=== PATIENT | male | born 1995 | race Caucasian/White ===

== ENCOUNTER 2017-12-20 09:14 | Inpatient (IN) | payer OTHER ==
[2017-12-20 10:06] LABS: ADD MAN DIFF? NO
[2017-12-20] MEDS: SOD CHLORIDE 0.9% 1,000 ML IV ×2 (10:07→10:53)
[2017-12-20] MEDS: KETOROLAC 30 MG INJ IV (10:07)
[2017-12-20 10:09] LABS: WHITE BLOOD COUNT 9.2 10^3/ul (4.8-10.8)
[2017-12-20 10:09] LABS: BASOPHILS % 0.1 % (0.0-2.0); HEMATOCRIT 41.3 % (42.0-52.0); HEMOGLOBIN 14.3 g/dl (14.0-18.0); LYMPHOCYTES # 0.9 10^3/ul (0.8-2.9); LYMPHOCYTES % 10.2 % (15.0-51.0); MEAN CORPUSCULAR HEMOGLOBIN 29.7 pg (29.0-33.0); MEAN CORPUSCULAR HGB CONC 34.6 g/dl (32.0-37.0); MEAN CORPUSCULAR VOLUME 85.7 fl (82.0-101.0); MONOCYTE # 0.7 10^3/ul (0.3-0.9); NEUTROPHIL # 7.5 10^3/ul (1.6-7.5); NEUTROPHILS % 81.5 % (39.0-77.0); PLATELET COUNT 222 10^3/UL (140-415); RED BLOOD COUNT 4.82 10^6/ul (4.70-6.10); RED CELL DISTRIBUTION WIDTH 11.9 % (11.5-14.5)
[2017-12-20 10:26] LABS: ALANINE AMINOTRANSFERASE 21 IU/L (13-69); ALBUMIN 4.9 g/dl (3.3-4.9); ALBUMIN/GLOBULIN RATIO 1.48; ALKALINE PHOSPHATASE 50 IU/L (42-121); ANION GAP 17 (8-16); ASPARTATE AMINO TRANSFERASE 29 IU/L (15-46); BLOOD UREA NITROGEN 13 mg/dl (7-20); CALCIUM 9.8 mg/dl (8.4-10.2); CARBON DIOXIDE 26 mmol/L (21-31); CHLORIDE 102 mmol/L (97-110); CREATININE 0.88 mg/dl (0.61-1.24); GLUCOSE 105 mg/dl (70-220); POTASSIUM 3.8 mmol/L (3.5-5.1); SODIUM 141 mmol/L (135-144); TOTAL PROTEIN 8.2 g/dl (6.1-8.1)
[2017-12-20 10:38] LABS: ADD UMIC NO; UR ASCORBIC ACID NEGATIVE (NEGATIVE); UR BILIRUBIN (Dip) NEGATIVE (NEGATIVE); UR BLOOD (Dip) NEGATIVE (NEGATIVE); UR CLARITY CLEAR (CLEAR); UR COLOR YELLOW (YELLOW); UR GLUCOSE (Dip) NEGATIVE (NEGATIVE); UR KETONES (Dip) TRACE mg/dL (NEGATIVE); UR LEUKOCYTE ESTERASE (Dip) NEGATIVE Leu/ul (NEGATIVE); UR NITRITE (Dip) NEGATIVE (NEGATIVE); UR SPECIFIC GRAVITY (Dip) 1.023 (1.003-1.030); UR TOTAL PROTEIN (Dip) NEGATIVE (NEGATIVE); UR UROBILINOGEN (Dip) 2+ mg/dL (NEGATIVE)
[2017-12-20] MEDS: HYDROmorphONE 1 MG/ML SYG IV ×2 (10:52→13:23)
[2017-12-20] MEDS: ONDANSETRON 4 MG INJ IV ×2 (10:52→13:23)
[2017-12-20 10:53] LABS: AMPHETAMINE/METHAMPHETAMINE Negative (NEGATIVE); BARBITURATES Negative (NEGATIVE); BENZODIAZEPINES Negative (NEGATIVE); CANNABINOIDS Negative (NEGATIVE); COCAINE Negative (NEGATIVE); OPIATES Negative (NEGATIVE)
[2017-12-20] MEDS: LEVETIRACETAM 1000 MG (PMX) 100 ML IVPB (10:54)
[2017-12-20 11:27] LABS: INR 1.14; PROTIME 14.8 Sec (11.9-14.9); PT RATIO 1.2
[2017-12-20 12:45] LABS: PARTIAL THROMBOPLASTIN TIME 83.3 Sec (25.0-35.0)
[2017-12-20 14:04] LABS: INR 1.08; PROTIME 14.1 Sec (11.9-14.9); PT RATIO 1.1
[2017-12-20 14:12] LABS: PARTIAL THROMBOPLASTIN TIME 85.7 Sec (25.0-35.0)
[2017-12-20] MEDS ORDERED: NACL 0.9% 3 ML SYG IV (15:00)
[2017-12-20] MEDS: morphine 2 MG INJ IV ×3 (17:06→22:10)
[2017-12-20 17:25] LABS: PARTIAL THROMBOPLASTIN TIME 85.3 Sec (25.0-35.0)
[2017-12-20] MEDS: SOD CHLORIDE 0.9% 100 ML (20:07)
[2017-12-20] MEDS: IODIXANOL LOCM 100 ML BTL (20:07)
[2017-12-20] MEDS: HYDROCODONE/APAP (10/325) TAB PO (20:56)
[2017-12-20] MEDS: LEVETIRACETAM 500 MG (PMX) 100 ML IVPB (22:10)
[2017-12-21] MEDS: morphine 2 MG INJ IV ×2 (05:41→21:18)
[2017-12-21 06:16] LABS: WHITE BLOOD COUNT 7.7 10^3/ul (4.8-10.8)
[2017-12-21 06:16] LABS: ADD MAN DIFF? NO; BASOPHILS % 0.1 % (0.0-2.0); EOSINOPHILS % 0.3 % (0.0-7.0); HEMATOCRIT 40.4 % (42.0-52.0); HEMOGLOBIN 14.1 g/dl (14.0-18.0); LYMPHOCYTES # 1.3 10^3/ul (0.8-2.9); LYMPHOCYTES % 17.4 % (15.0-51.0); MEAN CORPUSCULAR HEMOGLOBIN 29.7 pg (29.0-33.0); MEAN CORPUSCULAR HGB CONC 34.9 g/dl (32.0-37.0); MEAN CORPUSCULAR VOLUME 85.1 fl (82.0-101.0); MEAN PLATELET VOLUME 10.5 fl (7.4-10.4); MONOCYTE # 0.7 10^3/ul (0.3-0.9); MONOCYTES % 8.9 % (0.0-11.0); NEUTROPHIL # 5.6 10^3/ul (1.6-7.5); PLATELET COUNT 191 10^3/UL (140-415); RED BLOOD COUNT 4.75 10^6/ul (4.70-6.10); RED CELL DISTRIBUTION WIDTH 12.3 % (11.5-14.5)
[2017-12-21 06:42] LABS: ALANINE AMINOTRANSFERASE 21 IU/L (13-69); ALBUMIN 4.4 g/dl (3.3-4.9); ALBUMIN/GLOBULIN RATIO 1.37; ALKALINE PHOSPHATASE 49 IU/L (42-121); ANION GAP 12 (8-16); ASPARTATE AMINO TRANSFERASE 26 IU/L (15-46); BILIRUBIN,INDIRECT 1.2 mg/dl (0-1.1); BILIRUBIN,TOTAL 1.2 mg/dl (0.2-1.3); BLOOD UREA NITROGEN 11 mg/dl (7-20); CALCIUM 9.7 mg/dl (8.4-10.2); CARBON DIOXIDE 26 mmol/L (21-31); CHLORIDE 102 mmol/L (97-110); GLUCOSE 102 mg/dl (70-220); POTASSIUM 4.2 mmol/L (3.5-5.1); SODIUM 136 mmol/L (135-144); TOTAL PROTEIN 7.6 g/dl (6.1-8.1)
[2017-12-21 06:47] LABS: PARTIAL THROMBOPLASTIN TIME 85.4 Sec (25.0-35.0)
[2017-12-21] MEDS: HYDROCODONE/APAP (10/325) TAB PO (06:59)
[2017-12-21] MEDS: LEVETIRACETAM 500 MG (PMX) 100 ML IVPB ×2 (08:52→19:41)
[2017-12-21] MEDS: morphine 4 MG/ML VIAL IV (10:08)
[2017-12-21] MEDS ORDERED: NALOXONE (0.4 MG/ML) INJ IV (12:00)
[2017-12-21] MEDS ORDERED: HYDROmorphONE 0.2 MG/ML PCA IV (12:00)
[2017-12-21] MEDS: HYDROmorphONE 0.2 MG/ML PCA IV (12:52)
[2017-12-21 20:30] LABS: TYPE AND SCREEN 1 1
[2017-12-24 20:37] LABS: FACTOR VIII ACTIVITY 88 % normal (50-180)
== END 2017-12-21 23:10 | disposition short-term general hospital (02) | DRG 65 ==
LOC: ICU 12-21 01:29 → FTE 09:14 → ICU 13:17
DX: I61.9 Nontraumatic intracerebral hemorrhage, unspecified (principal); D68.9 Coagulation defect, unspecified
CPT/HCPCS: 36430; 70450; 70496; 71045; 72125; 80053; 80307; 81003; 85025; 85240; 85250; 85270; 85280; 85335; 85384; 85610; 85730; 86850; 86900; 86901; 87081; 96374; 96375; 99291-25